=== PATIENT | female | born 1985 | race Hispanic/Latino ===

== ENCOUNTER 2017-10-21 20:48 | Emergency (ER) | payer SELFPAY ==
[2017-10-21 21:13] LABS: Bilirubin Negative (Negative); Blood, Urine Moderate (Negative); Clarity Clear (Clear); Glucose, Urine (Dipstick) Negative (Negative); Leukocyte Large (Negative); Nitrite Negative (Negative); Protein, Urine (Dipstick) Negative (Neg-Trace); Urobilinogen 0.2 mg/dL (0.2-1.0); pH, Urine 6.5 (5.0-9.0)
[2017-10-21 21:17] LABS: Specific Gravity, Urine 1.003 (1.002-1.036); WBC/HPF 21-50 HPF (0-3)
[2017-10-21 21:18] LABS: Bacteria/HPF 1+ HPF (None Seen); Pregnancy Test - Urine (BHCG) Negative (Negative); Pregu Control Background? CLEAR/WHITE (CLR/WHITE); Pregu Control Bar Appear? YES (CONTROL BAR); Specific Gravity 1.003 (1.002-1.036); Squamous Epithelial 0-3 HPF (0-3)
[2017-10-21] MEDS ORDERED: Cephalexin 500 MG CAP ONE (21:37)
[2017-10-21] MEDS ORDERED: Dexamethasone 4 MG TAB ONE (21:37)
== END 2017-10-21 21:50 | disposition home or self-care (01) ==
LOC: MADERS 20:48
DX: J02.0 Streptococcal pharyngitis (principal); N39.0 Urinary tract infection, site not specified
CPT/HCPCS: 81001; 81025; 99283; J8540